=== PATIENT | female | born 1945 | race Caucasian/White ===

== ENCOUNTER 2016-08-25 16:54 | Emergency (ER) | payer MEDICARE, OTHER ==
[~2016-08-25 16:54] MED LIST: ALLEGRA180 MG; ALPRAZOLAM0.25 M3 PO; ASPIR 8181 MG; ASTELIN137 MCG; CLARITIN10 M8 PO; CYMBALTA60 MG; ESCITALOPRAM OX20 M1 PO; LEVOTHYROXINE75 MC3 PO; MAALOX MAXIMUM355 M1; MAXZIDE 37.5 M1 EAC1 PO; NUVIGIL150 M1 PO; OMEPRAZOLE20 M3 PO; PRAVACHOL20 MG; SYNTHROID75 MCG; SYNTHROID88 MCG; TYLENOL325 M2 PO
[2016-08-25] MEDS ORDERED: IMIQUIMOD1 EACH TP (19:56)
[2016-08-25] MEDS ORDERED: CYMBALTA20 M1 PO (19:57)
[2016-08-25] MEDS ORDERED: CYTOMEL5 MC1 PO (19:57)
[2016-08-25] MEDS ORDERED: AZELASTINE137 MCG/01 (19:58)
[2016-08-25 21:36] LABS: BASO % 0.2 % (0-2); EOS % 2.3 % (0-7); EOSINOPHIL ABSOLUTE COUNT 0.1 tho/cmm (0.0-0.7); HGB-HEMOGLOBIN 13.6 gm/dl (12.0-15.5); IMMATURE GRANULOCYTES ABSOLUTE 0.03 tho/cmm (0-0.03); IMMATURE GRANULOCYTES PERCENT 0.5 % (0-0.3); LYMPH % 29.4 % (20-45); LYMPH ABSOLUTE COUNT 1.8 tho/cmm (0.8-4.5); MCH (MEAN CORPUSCULAR HGB) 30.3 pg (28.0-32.0); MCHC MEAN CORPUSCULAR HGB CONC 34.9 % (32.0-36.0); MCV (MEAN CELL VOLUME) 86.9 fl (82.0-96.0); MEAN PLATELET VOLUME 8.7 cmc (9.4-12.4); MONO % 6.3 % (0-12); MONOCYTE ABSOLUTE COUNT 0.4 tho/cmm (0.0-1.2); NEUTROPHIL ABSOLUTE COUNT 3.8 tho/cmm (1.6-8.0); NEUTROPHIL-AUTOMATED 3.8 tho/cmm (1.6-8.0); NEUTROPHILS % 61.3 % (40-80); PLATELET COUNT 213 tho/cmm (150-450); RED BLOOD COUNT 4.49 mil/cmm (4.00-5.20); RED CELL DISTRIBUTION WIDTH 13.4 % (12.4-16.4); WHITE BLOOD COUNT 6.2 tho/cmm (4.0-10.0)
[2016-08-25 21:48] LABS: ANION GAP 12 mmol/L (0-20); BLOOD UREA NITROGEN 17 mg/dl (6-24); CALCIUM 9.1 mg/dl (8.5-10.5); CARBON DIOXIDE-VENOUS 26 mmol/L (22-32); CHLORIDE 105 mmol/l (96-110); CREATININE 0.76 mg/dl (0.50-1.10); GLUCOSE 200 mg/dL (70-110); POTASSIUM 3.5 mmol/L (3.7-5.1); SODIUM 139 mmol/L (135-145); eGFR VALUE FOR BLACK >90 mL/Min
[2016-08-25] MEDS ORDERED: DYAZIDE 37.5-21 EACH PO (21:59)
[2016-08-25] MEDS ORDERED: POTASSIUM CHLO10 ME2 PO (22:00)
== END 2016-08-25 22:06 ==
LOC: EDMED 16:54
PROVIDERS: Emergency Medicine
DX: R51 Headache (principal); E87.6 Hypokalemia; I10 Essential (primary) hypertension; R73.9 Hyperglycemia, unspecified